=== PATIENT | male | born 1980 | race Caucasian/White ===

== ENCOUNTER 2017-01-05 07:37 | Emergency (ER) | payer BC ==
[~2017-01-05 07:37] MED LIST: ACULAR10 ML OD; AMOXICILLIN500 M1 PO; ANTIPYRINE-BENZ10 ML OS; CLEOCIN150 MG PO; DIABETIC MED PO; ERYTHROMYCIN PO; NO MEDICATIONS; PHENERGAN25 MG PO; VICODIN 5/500 T1 TAB PO
== END 2017-01-05 09:17 | disposition home or self-care (01) ==
LOC: SED 07:37
DX: M54.41 Lumbago with sciatica, right side (principal); E11.9 Type 2 diabetes mellitus without complications
CPT/HCPCS: 82947; 96372; 99283; J1885